=== PATIENT | female | born 1950 | race Caucasian/White ===

== ENCOUNTER → 2018-03-04 | Day surgery (SDC) | payer OTHER, BC ==
--- NOTE | 2018-03-04 10:20 | OP ---
DATE OF OPERATION: 03/04/2018 PREOPERATIVE DIAGNOSIS: Left breast mass with suspicious left axillary adenopathy. POSTOPERATIVE DIAGNOSIS: Left breast mass with suspicious left axillary adenopathy. PROCEDURE: Left axillary ultrasound-guided core biopsy of lymph node with clip placement and left breast ultrasound-guided core biopsy with clip placement. ANESTHESIA: Local. ATTENDING SURGEON: Evans Mace M.D. ESTIMATED BLOOD LOSS: Minimal. COMPLICATIONS: None. PROCEDURE: Patient was made aware of the risks and benefits of the procedure and consented. She was placed in the supine position and the left axilla was approached first. Under sterile conditions with 1% lidocaine for local anesthesia, a small lisa was made in the skin. Using the 13-gauge suction biopsy device via inferolateral approach, multiple cores were obtained and submitted to Pathology. Likewise under ultrasound guidance, coil shaped clip was placed into the biopsy region. Patient tolerated the procedure well. Steri-Strips and a sterile bandage was applied. Next, the left breast at 2 o'clock 7-8 cm from the nipple mass was approached. Under sterile conditions with 1% lidocaine for local anesthesia, a small lisa was made in the skin. Using the 13-gauge suction biopsy device under ultrasound guidance, multiple cores were obtained and submitted to Pathology. Likewise, under ultrasound guidance, a U-shaped clip was placed into the biopsy region. Well tolerated by the patient. Steri-strips and sterile bandage was applied. Will contact the patient with the results. EVANS MACE M.D. [id number]
--- NOTE | 2018-03-05 16:23 | PATH ---
Surgical Pathology Report Patient Name: ROBBI ANTONY [facility]. Rec. #: [id number] /Age/Gender: 1950 (Age: 67) / F Account: [id number] Location: [facility] Taken: 03/04/2018 Received: 03/04/2018 Reported: 03/05/2018 Physicians: Evans Mace M.D. Specimen(s) Received A: LEFT BREAST 2:00 7-8 CM FN CORE BIOPSY B: LEFT AXILLARY LYMPH NODE CORE BIOPSY Clinical History Palpable mass Mammographic & ultrasound findings: Highly suspicious/malignant Final Diagnosis A. BREAST, LEFT, 2:00, 7-8 CM FN, CORE BIOPSY: INVASIVE DUCTAL CARCINOMA, POORLY DIFFERENTIATED, MEASURING 1.2 CM IN GREATEST DIMENSION IN THIS MATERIAL. B. AXILLARY LYMPH NODE, LEFT, BIOPSY: METASTATIC CARCINOMA, EXTENSIVELY INVOLVING LYMPH NODE. Results of ER and DE studies performed on block A at [facility] are as follows: ER (clone [id number] mouse monoclonal antibody by [employer]): 0 % nuclear staining (Negative). DE (clone16 mouse monoclonal antibody by [employer]): 0 % nuclear staining (Negative). Results of Her2 & Ki67 studies will be reported separately in an addendum. Positive and negative controls (internal if applicable) show appropriate results. Formalin fixation and cold ischemic times are within current ASCO/CAP recommendations for ER, DE and Her2 testing. Electronically Signed Breana Arriola M.D. Addendum Reported: 03/06/2018 Addendum Diagnosis Results of Her2 (IHC) & Ki-67 studies performed at [place], [place] ([id number]) are as follows: Her2 IHC (EP3 from [employer], formerly known as [id number], using [employer] Polymer Refine detection kit): 3+ (Positive). Ki-67: ~60 % (High proliferative index). Positive and negative controls (internal if applicable) show appropriate results. Breana Arriola M.D. Gross Description A. Received in formalin labeled "left breast biopsy 2:00, 7-8 cmfn," is a 1.7 x 0.9 x 0.2 cm aggregate of multiple aguiar-yellow, irregular to cylindrical portions of fibroadipose tissue admixed with blood clot. The formalin is filtered and the specimen is entirely submitted in one cassette. B. Received in formalin labeled "left axillary lymph node biopsy" is a 1.6 x 1.1 x 0.2 cm aggregate of multiple aguiar-yellow, irregular to cylindrical portions of fibroadipose tissue. The formalin is filtered and the specimen is entirely submitted in one cassette. Time to formalin fixation: < 1 minute Total formalin fixation time: Approximately 26 hours. 03/04/2018 saudi03/04/2018
== END | disposition home or self-care (01) ==
LOC: FRADUS-SUR 08:05
PROVIDERS: ATTEND Surgery Surgical Oncology
PROC: 0HBU3ZX Excision of Left Breast, Percutaneous Approach, Diagnostic (ICD-10-PCS; principal; 2018-03-04)
PROC: 07B63ZX Excision of Left Axillary Lymphatic, Percutaneous Approach, Diagnostic (ICD-10-PCS; 2018-03-04)
PROC: BH47ZZZ Ultrasonography of Upper Extremity (ICD-10-PCS; 2018-03-04)
DX: C50.412 Malignant neoplasm of upper-outer quadrant of left female breast (principal); C77.3 Secondary and unspecified malignant neoplasm of axilla and upper limb lymph nodes; Z17.1 Estrogen receptor negative status [ER-]
CPT/HCPCS: 19083; 76942-TC; 87899; 88305-TC; 88342-TC; A4648